=== PATIENT | male | born 1955 | race Caucasian/White ===

== ENCOUNTER 2019-04-16 20:14 | Emergency (ER) | payer BC ==
[2019-04-16] MEDS ORDERED: Sodium Chloride 0.9% 10 ML Syringe FLUSH PRN (21:08)
[2019-04-16] MEDS ORDERED: HYDROmorphone 0.5 MG/0.5 ML Syringe IVPUSH ONE ×2 (21:09→23:20)
[2019-04-16] MEDS ORDERED: Ondansetron 4 MG/2 ML SDV IVPUSH ONE (21:09)
[2019-04-16] MEDS ORDERED: Sodium Chloride 0.9% 1,000 ML IV SCH (21:15)
--- NOTE | 2019-04-16 21:20 | EDM.PDOC ---
ED HPI GENERAL MEDICAL PROBLEM - General Chief Complaint: Abdominal Pain Stated Complaint: CENTER PAIN/HAS GALLBLADDER PROBLEMS Time Seen by Provider: 04/16/19 20:43 Source of Information: Reports: Patient History Limitations: Reports: No Limitations - History of Present Illness INITIAL COMMENTS - FREE TEXT/NARRATIVE: Patient is a 63-year-old male who presents with complaints of epigastric and right upper quadrant abdominal pain that started around 1:00 this morning. The pain has caused him nausea and he has vomited twice. He did have a leftover Percocet that he took around 11:00 this morning which she states did improve the pain significantly, however, the pain did return with the medication wore off. He has had some chills but denies any known fever. The last time that he ate was last night. He had eaten a hamburger with a fried egg on toast. He has not eaten since that time. He does complain of some slight shortness of breath which she attributes to the pain. He denies any chest pain or diarrhea. Patient has a known history of cholecystitis. Last month he was admitted to the hospital in [place] with similar symptoms. An ultrasound was completed and he was found to have gallstones as well as gallbladder inflammation. He spent 2 nights in the hospital in [place], however states that they are unable to remove his gallbladder there. He was referred to [facility] to have his gallbladder removed, however it was found that he "too small blood clots in his lungs ". Patient was started on Xarelto to treat the PEs with a plan of taking his gallbladder out at a later time. He did follow-up with surgeon, Dr. Cummins , and was scheduled for surgery, however he canceled the appointment because he was no longer having pain and he thought he can manage his symptoms with diet modifications. Bilateral Upper Abdomen Pain Score (Numeric/FACES): 10 - Related Data Allergies Allergy/AdvReac Type Severity Reaction Status Date / Time No Known Allergies Allergy Verified 04/16/19 20:43 Home Meds: Home Meds Lisinopril [Zestril] 12.5 mg PO DAILY 04/16/19 [History] Rivaroxaban [Xarelto] 20 mg PO DAILY 04/16/19 [History] Past Medical History HEENT History: Reports: Impaired Vision Cardiovascular History: Reports: Hypertension Respiratory History: Reports: PE Gastrointestinal History: Reports: Cholelithiasis Genitourinary History: Reports: None Musculoskeletal History: Reports: None Neurological History: Reports: None Psychiatric History: Reports: None Endocrine/Metabolic History: Reports: Obesity/BMI 30+ Hematologic History: Reports: Anticoagulation Therapy Immunologic History: Reports: None Oncologic (Cancer) History: Reports: Other (See Below) Other Oncologic History: Rectal Dermatologic History: Reports: None - Infectious Disease History Infectious Disease History: Reports: None - Past Surgical History HEENT Surgical History: Reports: Cataract Surgery GI Surgical History: Reports: Hernia Repair/Other, Other (See Below) Other GI Surgeries/Procedures: Rectal Surgery to remove cancer. Oncologic Surgical History: Reports: Other (See Below) Other Oncologic Surgeries/Procedures: Port placement and removal. Social & Family History - Tobacco Use Smoking Status *Q: Never Smoker - Caffeine Use Caffeine Use: Reports: Coffee, Soda, Tea - Recreational Drug Use Recreational Drug Use: No ED ROS GENERAL - Review of Systems Review Of Systems: Comprehensive ROS is negative, except as noted in HPI. ED EXAM, GI/ABD - Physical Exam Exam: See Below Exam Limited By: No Limitations General Appearance: Alert, WD/WN, Mild Distress Respiratory/Chest: No Respiratory Distress, Lungs Clear, Normal Breath Sounds, No Accessory Muscle Use, Chest Non-Tender Cardiovascular: Normal Peripheral Pulses, Regular Rate, Rhythm, No Edema, No Gallop, No JVD, No Murmur, No Rub GI/Abdominal Exam: Normal Bowel Sounds, Soft, No Organomegaly, No Distention, No Abnormal Bruit, No Mass, Tender (Right upper quadrant. Positive Delgadillo sign. ) Neurological: Alert, Oriented, CN II-XII Intact, Normal Cognition, Normal Gait, Normal Reflexes, No Motor/Sensory Deficits Psychiatric: Normal Affect, Normal Mood Skin Exam: Warm, Dry, Intact, Normal Color, No Rash Course - Vital Signs Last Recorded V/S: Last Vital Signs Temp 98.2 F 04/16/19 20:38 Pulse 70 04/16/19 20:38 Resp 16 04/16/19 20:38 BP 134/88 04/16/19 20:38 Pulse Ox 97 04/16/19 20:38 - Orders/Labs/Meds Orders: Active Orders 24 hr Category Date Time Status Peripheral IV Care [RC] . DIRECTED Care 04/16/19 21:09 Active Abdomen Ltd [US] Stat Exams 04/16/19 21:09 Taken UA W/MICROSCOPIC [URIN] Stat Lab 04/16/19 21:10 Ordered Sodium Chloride 0.9% [Normal Saline] 1,000 ml Med 04/16/19 21:15 Active IV ASDIRECTED Sodium Chloride 0.9% [Saline Flush] Med 04/16/19 21:08 Active 10 ml FLUSH ASDIRECTED PRN Peripheral IV Insertion Adult [OM.PC] Stat Oth 04/16/19 21:08 Ordered Medication Orders Sodium Chloride (Normal Saline) 1,000 mls @ 150 mls/hr IV ASDIRECTED MENA Last Admin: 04/16/19 21:29 Dose: 150 mls/hr Sodium Chloride (Saline Flush) 10 ml FLUSH ASDIRECTED PRN PRN Reason: Keep Vein Open Labs: Laboratory Tests 04/16/19 04/16/19 Range/Units 21:49 21:49 WBC 9.81 H (4.23-9.07) K/mm3 RBC 4.72 (4.63-6.08) M/mm3 Hgb 14.6 (13.7-17.5) gm/dl Hct 41.9 (40.1-51.0) % MCV 88.8 (79.0-92.2) fl MCH 30.9 (25.7-32.2) pg MCHC 34.8 (32.2-35.5) g/dl RDW Std Deviation 44.1 H (35.1-43.9) fL Plt Count 262 (163-337) K/mm3 MPV 9.6 (9.4-12.3) fl Neut % (Auto) 89.4 H (34.0-67.9) % Lymph % (Auto) 3.5 L (21.8-53.1) % [place] % (Auto) 6.1 (5.3-12.2) % Eos % (Auto) 0.6 L (0.8-7.0) Baso % (Auto) 0.2 (0.1-1.2) % Neut # (Auto) 8.77 H (1.78-5.38) K/mm3 Lymph # (Auto) 0.34 L (1.32-3.57) K/mm3 [place] # (Auto) 0.60 (0.30-0.82) K/mm3 Eos # (Auto) 0.06 (0.04-0.54) K/mm3 Baso # (Auto) 0.02 (0.01-0.08) K/mm3 Manual Slide Review Normal smear Sodium 139 (136-145) mEq/L Potassium 3.7 (3.5-5.1) mEq/L Chloride 101 (98-107) mEq/L Carbon Dioxide 25 (21-32) mEq/L Anion Gap 16.7 H (5-15) BUN 24 H (7-18) mg/dL Creatinine 1.1 (0.7-1.3) mg/dL Est Cr Clr Drug Dosing 70.05 mL/min Estimated GFR (MDRD) > 60 (>60) mL/min BUN/Creatinine Ratio 21.8 H (14-18) Glucose 138 H (80-115) mg/dL Calcium 9.6 (8.5-10.1) mg/dL Total Bilirubin 3.3 H (0.2-1.0) mg/dL AST 344 H (15-37) U/L ALT 384 H (16-63) U/L Alkaline Phosphatase 161 H (46-116) U/L C-Reactive Protein 2.3 H* (<1.0) mg/dL Total Protein 7.2 (6.4-8.2) g/dl Albumin 3.2 L (3.4-5.0) g/dl Globulin 4.0 gm/dL Albumin/Globulin Ratio 0.8 L (1-2) Amylase 27 (25-115) U/L Lipase 81 (73-393) U/L Meds: Medications Generic Name Dose Route Start Last Admin Trade Name Freq PRN Reason Stop Dose Admin Sodium Chloride 1,000 mls @ 150 mls/hr 04/16/19 21:15 04/16/19 21:29 Normal Saline IV 150 mls/hr ASDIRECTED MENA Administration Sodium Chloride 10 ml 04/16/19 21:08 Saline Flush FLUSH ASDIRECTED PRN Keep Vein Open Discontinued Medications Generic Name Dose Route Start Last Admin Trade Name Freq PRN Reason Stop Dose Admin Hydromorphone HCl 0.5 mg 04/16/19 21:09 04/16/19 21:29 Dilaudid IVPUSH 04/16/19 21:10 0.5 mg ONETIME ONE Administration Hydromorphone HCl 0.5 mg 04/16/19 23:20 04/16/19 23:37 Dilaudid IVPUSH 04/16/19 23:21 0.5 mg ONETIME ONE Administration Ondansetron HCl 4 mg 04/16/19 21:09 04/16/19 21:29 Zofran IVPUSH 04/16/19 21:10 4 mg ONETIME ONE Administration - Re-Assessments/Exams Free Text/Narrative Re-Assessment/Exam: 04/16/19 23:58 Hematology was significant for a mildly elevated WBC at 9.81, total bili elevated at 3.3, AST, 344, ALT 384, alk phos 161. Right upper quadrant ultrasound does show gallstones with a positive sonographic Delgadillo sign. It also shows a common bile duct slightly dilated at 7 mm. Spoke with the on-call surgeon, , who is concerned the patient may end up needing an ERCP as his work-up is concerning for a stone in his common bile duct. This before she is not a procedure that we have available in our facility. Called [facility] which was the patient's initial request, however their surgeon who handles ERCPs is out of the office until next week. Called seen [facility] spoke to on-call GI specialist, Dr. Pratt. He recommended the patient be transferred to their facility. Spoke with the hospitalist, Dr. Sanchez, who accepted patient for transfer with a direct admission. Patient's pain is been well controlled and vital signs have been stable while in the emergency department. The patient and his would like to transport via private vehicle. We will leave his IV intact for the transfer. Transfer paperwork will be sent with the patient. Departure - Departure Time of Disposition: 23:50 Disposition: DC/Tfer to Acute Hospital 02 Condition: Fair Clinical Impression: Acute cholecystitis - Discharge Information Referrals: PCP,Not In Area [Primary Care Provider] - Forms: ED Department Discharge Sepsis Event Note - Evaluation Sepsis Screening Result: No Definite Risk - Focused Exam Vital Signs: Vital Signs Temp Pulse Resp BP Pulse Ox 04/16/19 20:38 98.2 F 70 16 134/88 97 Date Exam was Performed: 04/16/19 Time Exam was Performed: 23:55 - My Orders Last 24 Hours: My Active Orders 04/16/19 21:08 Sodium Chloride 0.9% [Saline Flush] 10 ml FLUSH ASDIRECTED PRN Peripheral IV Insertion Adult [OM.PC] Stat 04/16/19 21:09 Peripheral IV Care [RC] . DIRECTED Abdomen Ltd [US] Stat 04/16/19 21:10 UA W/MICROSCOPIC [URIN] Stat 04/16/19 21:15 Sodium Chloride 0.9% [Normal Saline] 1,000 ml IV ASDIRECTED - Assessment/Plan Last 24 Hours: My Active Orders 04/16/19 21:08 Sodium Chloride 0.9% [Saline Flush] 10 ml FLUSH ASDIRECTED PRN Peripheral IV Insertion Adult [OM.PC] Stat 04/16/19 21:09 Peripheral IV Care [RC] . DIRECTED Abdomen Ltd [US] Stat 04/16/19 21:10 UA W/MICROSCOPIC [URIN] Stat 04/16/19 21:15 Sodium Chloride 0.9% [Normal Saline] 1,000 ml IV ASDIRECTED
--- NOTE | 2019-04-17 08:51 | US ---
Limited abdominal ultrasound: Multiple real-time images of the upper right abdomen were obtained. Comparison: No prior right upper quadrant imaging. Sludge and gallstones noted with a slightly dilated gallbladder. No pericholecystic fluid is seen. Common bile duct measures at the upper limits of normal at 7 mm. Liver shows no focal parenchymal abnormality. Right kidney shows no hydronephrosis or mass. Right kidney has a length of 13.0 cm. Pancreas is mostly obscured from bowel gas. Visualized portions of the pancreas shows no discrete abnormality. Main portal vein shows normal hepatopedal flow. Inferior vena cava is patent. Impression: 1. Slightly dilated gallbladder containing gallstones and sludge. Common bile duct measures at the upper limits of normal at 7 mm. Consider biliary HIDA scan to further evaluate. 2. No additional abnormality is appreciated on right upper quadrant abdominal ultrasound. Diagnostic code #3 This report was dictated in [place] Standard Time I agree with preliminary report from [facility], finalized on 04/16/19 11:31 PM Central Time
== END 2019-04-17 00:15 ==
LOC: JD.ED 20:14
DX: K81.0 Acute cholecystitis (principal); I10 Essential (primary) hypertension; E66.9 Obesity, unspecified; I26.99 Other pulmonary embolism without acute cor pulmonale; Z79.899 Other long term (current) drug therapy; Z79.01 Long term (current) use of anticoagulants; Z68.35 Body mass index [BMI] 35.0-35.9, adult
CPT/HCPCS: 36415; 76705; 80053; 82150; 83690; 85025; 86140; 96361; 96374; 96375; 96376; 99285; J1170; J2405; J7030; 99284

== ENCOUNTER 2021-09-03 16:29 | Emergency (ER) | payer MEDICARE, BC ==
[2021-09-03] MEDS ORDERED: Sodium Chloride 0.9% 10 ML Syringe FLUSH PRN (18:55)
[2021-09-03] MEDS ORDERED: Dicyclomine 10 MG Cap PO ONE (18:59)
== END 2021-09-03 20:43 | disposition home or self-care (01) ==
LOC: JD.ED 16:29
DX: K52.9 Noninfective gastroenteritis and colitis, unspecified (principal); I10 Essential (primary) hypertension; E66.9 Obesity, unspecified; Z68.39 Body mass index [BMI] 39.0-39.9, adult; Z79.899 Other long term (current) drug therapy
CPT/HCPCS: 36415; 74177; 80053; 81001; 83735; 85025; 86140; 99284; A9270; J3490

== ENCOUNTER 2021-09-06 17:19 | Emergency (ER) | payer MEDICARE, BC ==
[2021-09-06] MEDS ORDERED: HYDROmorphone 1 MG/ML Syringe IVPUSH ONE (18:29)
[2021-09-06] MEDS ORDERED: Sodium Chloride 0.9% 1,000 ML IV ONE (18:29)
[2021-09-06] MEDS ORDERED: Ondansetron 4 MG/2 ML SDV IVPUSH ONE (18:29)
[2021-09-06] MEDS ORDERED: Potassium Chloride 20 MEQ Tab.ER PO ONE (19:40)
== END 2021-09-06 21:53 | disposition home or self-care (01) ==
LOC: JD.ED 17:19
DX: R10.30 Lower abdominal pain, unspecified (principal); R11.2 Nausea with vomiting, unspecified; R19.7 Diarrhea, unspecified; I10 Essential (primary) hypertension; E66.9 Obesity, unspecified; Z68.38 Body mass index [BMI] 38.0-38.9, adult; Z90.49 Acquired absence of other specified parts of digestive tract
CPT/HCPCS: 36415; 80053; 83735; 85007; 85027; 96361; 96365; 96375; 99284; A9270; J1170; J2405; J3475; J7030